=== PATIENT | male | born 1955 | race Hispanic/Latino ===

== ENCOUNTER 2022-12-29 13:39 | Inpatient (IN) | payer OTHER ==
[2022-12-29] VITALS (28 sets, daily range): BP systolic 82–161; BP diastolic 42–115
[~2022-12-29] VITALS: Ht 152.4 cm; Wt 69.4 kg
[2022-12-29] MEDS ORDERED: HEPARIN 5,000 UNIT VIAL ONE (13:42)
[2022-12-29] MEDS ORDERED: TICAGRELOR 90 MG TABLET ONE (13:42)
[2022-12-29 13:56] LABS: BASOPHILS % (AUTO) 0.3 % (0.0-5.0); EOSINOPHILS % (AUTO) 1.6 % (0.0-8.0); HEMATOCRIT 46.1 % (42-54); LYMPHOCYTES % (AUTO) 16.8 % (21.0-51.0); MEAN CORPUSCULAR HEMOGLOBIN 27.4 pg (27.0-33.0); MEAN CORPUSCULAR HGB CONC 32.5 g/dL (32.0-36.0); MEAN CORPUSCULAR VOLUME 84.3 fL (79-99); MONOCYTES % (AUTO) 5.3 % (3.0-13.0); NEUTROPHILS % (AUTO) 75.7 % (40.0-77.0); PLATELET COUNT (AUTO) 214 K/uL (130-400); RED BLOOD CELL COUNT(AUTO) 5.47 MIL/uL (4.50-6.20); RED CELL DISTRIBUTION WIDTH 11.9 % (11.0-15.5); WHITE BLOOD COUNT (AUTO) 9.5 K/uL (4.8-10.8)
[2022-12-29] MEDS: HEPARIN 5,000 UNIT VIAL IV STA ×2 (13:56→14:06)
[2022-12-29] MEDS: TICAGRELOR 90 MG TABLET PO SCH ×3 (13:56→16:40)
[2022-12-29] MEDS ORDERED: FUROSEMIDE 20MG VIAL ONE (14:05)
[2022-12-29 14:09] LABS: ALBUMIN 3.6 g/dL (3.5-5.0); CREATININE 1.3 mg/dL (0.5-1.5); MAGNESIUM 1.9 mg/dL (1.80-2.40); POTASSIUM 4.3 mmol/L (3.5-5.1); TOTAL PROTEIN, SERUM 7.5 g/dL (6.0-8.3)
[2022-12-29 14:22] LABS: B-TYPE NATRIURETIC PEPTIDE 252 pg/mL (0-100)
[2022-12-29] MEDS ORDERED: LIDOCAINE HCL 400MG/20ML VIAL ONE (14:25)
[2022-12-29] MEDS ORDERED: MIDAZOLAM HCL 1 MG/ML 2ML VIAL ONE (14:25)
[2022-12-29] MEDS ORDERED: FENTANYL CITRATE PF 50 MCG/1 ML 2ML VIAL ONE (14:25)
[2022-12-29 14:26] LABS: INR 0.98 (0.85-1.15); PROTHROMBIN TIME 10.7 SEC (9.6-11.6)
[2022-12-29] MEDS ORDERED: HEPARIN 10,000 UNIT/10ML (1,000 UNIT/ML) VIAL ONE (14:27)
[2022-12-29] MEDS ORDERED: IOHEXOL 350 MG/ML 100ML INFUS..BTL IV ONE (14:27)
[2022-12-29] MEDS ORDERED: MORPHINE 4 MG SYG ONE (14:27)
[2022-12-29] MEDS ORDERED: PROPOFOL 1000 MG/100 ML 100 ML IV ONE ×2 (14:29→19:37)
[2022-12-29] MEDS ORDERED: NITROGLYCERIN 50MG VIAL ONE (14:43)
[2022-12-29] MEDS ORDERED: SUCCINYLCHOLINE CHLORIDE 20 MG/ML 10 ML VIAL IVP ONE (14:59)
[2022-12-29] MEDS ORDERED: ETOMIDATE 20MG VIAL IVP ONE (14:59)
[2022-12-29 15:05] LABS: ABG BASE EXCESS -7.8 mmol/L (-2.0-3.0); ABG HCO3 18.5 mmol/L (21.0-28.0); ABG OXYGEN SATURATION 99.7 % (95.0-99.0); ABG PCO2 40 mmHg (35-48)
[2022-12-29] MEDS ORDERED: SODIUM BICARB 50MEQ 50ML VIAL 50 ML ONE (15:07)
[2022-12-29] MEDS ORDERED: DOBUTAMINE 250MG/D5 250ML 250 ML IV ONE (15:09)
[2022-12-29] MEDS ORDERED: HEPARIN 25,000 UNITS/250ML D5W 250 ML IV ONE (15:24)
[2022-12-29 16:51] LABS: ABG BASE EXCESS -1.6 mmol/L (-2.0-3.0); ABG HCO3 22.4 mmol/L (21.0-28.0); ABG OXYGEN SATURATION 99.7 % (95.0-99.0); ABG PCO2 36 mmHg (35-48)
[2022-12-29] MEDS: BUMETANIDE 2.5MG/10ML VIAL 40 ML IV SCH (16:58)
[2022-12-29] MEDS ORDERED: INSULIN HUMULIN R 100 UNIT/ML 3ML SQ STA ×2 (18:20→18:30)
[2022-12-29] MEDS ORDERED: GLUCAGON 1MG KIT 1 MG ML IM PRN (18:30)
[2022-12-29] MEDS ORDERED: DEXTROSE 50%-WATER 50 ML DISP.SYRIN IV PRN (18:30)
[2022-12-29] MEDS ORDERED: DiphenhydrAMINE HCL 50 MG/ML VIAL IV PRN (19:00)
[2022-12-29] MEDS ORDERED: MORPHINE 2 MG SYG IVP PRN (19:00)
[2022-12-29] MEDS ORDERED: ONDANSETRON 4MG INJ IVP PRN (19:00)
[2022-12-29] MEDS ORDERED: HYDRALAZINE 20MG/ML VIAL IV PRN (19:00)
[2022-12-29] MEDS ORDERED: DOPAMINE HCL 400 MG/D5%-WATER 250 ML IV ONE (19:39)
[2022-12-29] MEDS: PROPOFOL 1000 MG/100 ML IV PRN (19:59)
[2022-12-29] MEDS: DOPAMINE HCL 400 MG/D5%-WATER 250 ML IV PRN (20:00)
[2022-12-29] MEDS: INSULIN HUMULIN R 100 UNIT/ML 3ML SQ SCH ×2 (20:10→23:51)
[2022-12-29] MEDS: PANTOPRAZOLE 40 MG TAB DR PO SCH (20:35)
[2022-12-29] MEDS ORDERED: INSULIN HUMULIN R 100 UNIT/ML 3ML SQ SCH (21:00)
[2022-12-29 21:40] LABS: CREATININE 1.3 mg/dL (0.5-1.5); MAGNESIUM 2.2 mg/dL (1.80-2.40); POTASSIUM 3.5 mmol/L (3.5-5.1)
[2022-12-29] MEDS: POTASSIUM CHLORIDE 10MEQ/100ML 100 ML IV PRN (21:59)
[2022-12-30] VITALS (114 sets, daily range): BP systolic 75–156; BP diastolic 32–108
[2022-12-30] MEDS: PROPOFOL 1000 MG/100 ML IV PRN ×2 (01:31→06:23)
[2022-12-30 03:07] LABS: MEAN CORPUSCULAR HEMOGLOBIN 26.9 pg (27.0-33.0); MEAN CORPUSCULAR HGB CONC 32.6 g/dL (32.0-36.0); MEAN CORPUSCULAR VOLUME 82.6 fL (79-99); RED BLOOD CELL COUNT(AUTO) 5.69 MIL/uL (4.50-6.20); WHITE BLOOD COUNT (AUTO) 14.4 K/uL (4.8-10.8)
[2022-12-30 03:25] LABS: HEMOGLOBIN A1C 8.5 % (4.0-6.0)
[2022-12-30 03:27] LABS: CREATININE 1.4 mg/dL (0.5-1.5); MAGNESIUM 1.7 mg/dL (1.80-2.40); PHOSPHORUS 3.8 mg/dL (2.5-4.9); POTASSIUM 3.3 mmol/L (3.5-5.1); THYROID STIMULATING HORMONE 1.75 uIU/mL (0.36-3.74)
[2022-12-30] MEDS: POTASSIUM CHLORIDE 10MEQ/100ML 100 ML IV PRN ×4 (03:42→14:02)
[2022-12-30] MEDS: MAGNESIUM 2GM PREMIX 50ML 50 ML IV PRN ×2 (03:42→22:30)
[2022-12-30] MEDS: INSULIN HUMULIN R 100 UNIT/ML 3ML SQ SCH ×4 (05:40→23:56)
[2022-12-30] MEDS: BUMETANIDE 2.5MG/10ML VIAL 40 ML IV SCH (06:24)
[2022-12-30] MEDS ORDERED: FENTANYL 2500MCG+NS 250ML IV.SOLN IV SCH (07:30)
[2022-12-30] MEDS ORDERED: MIDAZOLAM HCL 50 MG in 0.9%NACL 50ML 50 ML IV SCH (07:30)
[2022-12-30] MEDS: TICAGRELOR 90 MG TABLET PO SCH (07:45)
[2022-12-30] MEDS ORDERED: FENTANYL 1000MCG+NS 100ML 100 ML IV SCH (08:00)
[2022-12-30] MEDS ORDERED: MIDAZOLAM 50MG-0.9% NS 50ML 50 ML IV SCH (08:00)
[2022-12-30] MEDS: ATORVASTATIN 40 MG TABLET PO SCH (09:04)
[2022-12-30] MEDS: ASPIRIN 81MG CHEW TAB PO SCH (09:04)
[2022-12-30] MEDS: PANTOPRAZOLE 40 MG TAB DR PO SCH ×2 (09:05→20:25)
[2022-12-30 09:06] LABS: MAGNESIUM 2.3 mg/dL (1.80-2.40); POTASSIUM 3.2 mmol/L (3.5-5.1)
[2022-12-30 09:09] LABS: PROTHROMBIN TIME 10.9 SEC (9.6-11.6)
[2022-12-30 09:10] LABS: PARTIAL THROMBOPLASTIN TIME 69.2 SEC (26.3-35.5)
[2022-12-30] MEDS: POTASSIUM CHLORIDE 10% ELIXIR 20 MEQ/15 ML UDCUP PO PRN ×2 (10:40→10:55)
[2022-12-30] MEDS: HEPARIN 25,000 UNITS/250ML D5W 250 ML IV SCH (10:47)
[2022-12-30] MEDS: DOPAMINE HCL 400 MG/D5%-WATER 250 ML IV PRN (10:48)
[2022-12-30] MEDS ORDERED: ACETAMINOPHEN 650 MG SUPPOSITORY RC ONE (12:12)
[2022-12-30] MEDS ORDERED: ACETAMINOPHEN 325 MG TAB ONE (12:17)
[2022-12-30] MEDS ORDERED: ACETAMINOPHEN 650 MG/20.3 ML UDCUP PEG ONE (12:30)
[2022-12-30] MEDS ORDERED: ACETAMINOPHEN 325 MG SUPPOSITORY RC PRN (12:30)
[2022-12-30] MEDS ORDERED: ACETAMINOPHEN 650 MG SUPPOSITORY RC PRN ×2 (12:30→13:00)
[2022-12-30] MEDS: ACETAMINOPHEN 325 MG TAB PO PRN ×2 (13:11→20:51)
[2022-12-30] MEDS ORDERED: NOREPINEPHRINE 8MG/NS 250ML PREMIX IV SCH (14:30)
[2022-12-30] MEDS ORDERED: NOREPINEPHRINE 16MG/NS 250ML PREMIX IV SCH (14:30)
[2022-12-30] MEDS ORDERED: NOREPINEPHRIN 8MG/250ML NS PMX 250 ML IV SCH (15:00)
[2022-12-30] MEDS ORDERED: BUMETANIDE 2.5MG/10ML VIAL 40 ML IV SCH (17:00)
[2022-12-30] MEDS ORDERED: HYDROMORPHONE 0.5 MG SYG (0.5MG/0.5ML) ONE (17:58)
[2022-12-30] MEDS ORDERED: DIGOXIN 250 MCG/ML 2ML AMP ONE (17:59)
[2022-12-30] MEDS ORDERED: DIGOXIN 250 MCG/ML 2ML AMP IV ONE (18:00)
[2022-12-30] MEDS: DEXMEDETOMIDINE 400MCG/NS100ML IV SCH ×2 (18:12→22:30)
[2022-12-30 18:19] LABS: HEMATOCRIT 44.3 % (42-54); MEAN CORPUSCULAR HEMOGLOBIN 27.2 pg (27.0-33.0); MEAN CORPUSCULAR HGB CONC 32.7 g/dL (32.0-36.0); RED BLOOD CELL COUNT(AUTO) 5.34 MIL/uL (4.50-6.20); RED CELL DISTRIBUTION WIDTH 12.1 % (11.0-15.5); WHITE BLOOD COUNT (AUTO) 17.4 K/uL (4.8-10.8)
[2022-12-30 18:22] LABS: ABG HCO3 24.7 mmol/L (21.0-28.0); ABG OXYGEN SATURATION 98.9 % (95.0-99.0); ABG PCO2 30 mmHg (35-48)
[2022-12-30 18:26] LABS: CREATININE 1.8 mg/dL (0.5-1.5); POTASSIUM 4.8 mmol/L (3.5-5.1)
[2022-12-30] MEDS ORDERED: INSULIN HUMULIN R 100 UNIT/ML 3ML SQ SCH (18:30)
[2022-12-30] MEDS ORDERED: NACL IV ONE ×2 (19:00)
[2022-12-30] MEDS ORDERED: PHENYLEPHRINE HCL 100 MG in 0.9% NACL 250ML 240 ML IV PRN (21:30)
[2022-12-30 22:12] LABS: CREATININE 1.8 mg/dL (0.5-1.5); MAGNESIUM 1.8 mg/dL (1.80-2.40); POTASSIUM 3.7 mmol/L (3.5-5.1)
[2022-12-30] MEDS: POTASSIUM CHLORIDE 20MEQ/100ML 100 ML IV PRN (22:30)
[2022-12-31] VITALS (98 sets, daily range): BP systolic 80–162; BP diastolic 34–78
[2022-12-31] MEDS: DEXMEDETOMIDINE 400MCG/NS100ML IV SCH ×4 (03:03→23:57)
[2022-12-31 04:49] LABS: HEMATOCRIT 39.3 % (42-54); MEAN CORPUSCULAR HEMOGLOBIN 27.3 pg (27.0-33.0); MEAN CORPUSCULAR HGB CONC 32.3 g/dL (32.0-36.0); MEAN CORPUSCULAR VOLUME 84.3 fL (79-99); RED BLOOD CELL COUNT(AUTO) 4.66 MIL/uL (4.50-6.20)
[2022-12-31 05:04] LABS: CREATININE 1.9 mg/dL (0.5-1.5); MAGNESIUM 2.4 mg/dL (1.80-2.40); PHOSPHORUS 4.7 mg/dL (2.5-4.9); POTASSIUM 4.7 mmol/L (3.5-5.1)
[2022-12-31] MEDS: INSULIN HUMULIN R 100 UNIT/ML 3ML SQ SCH ×4 (05:56→23:56)
[2022-12-31] MEDS: BUMETANIDE 1MG/4ML VIAL IVP SCH ×2 (06:16→18:25)
[2022-12-31] MEDS ORDERED: BUMETANIDE 1MG/4ML VIAL IM SCH (07:00)
[2022-12-31] MEDS: PANTOPRAZOLE 40 MG TAB DR PO SCH ×2 (09:00→19:55)
[2022-12-31] MEDS: ASPIRIN 81MG CHEW TAB PO SCH (09:12)
[2022-12-31] MEDS: FAMOTIDINE 20MG TAB PO SCH (09:12)
[2022-12-31] MEDS: ATORVASTATIN 40 MG TABLET PO SCH (09:12)
[2022-12-31] MEDS: HEPARIN 25,000 UNITS/250ML D5W 250 ML IV SCH (14:24)
[2022-12-31 17:15] LABS: CREATININE 1.6 mg/dL (0.5-1.5); INR 1.01 (0.85-1.15); MAGNESIUM 2.3 mg/dL (1.80-2.40); POTASSIUM 3.7 mmol/L (3.5-5.1)
[2022-12-31 17:16] LABS: PARTIAL THROMBOPLASTIN TIME 35.1 SEC (26.3-35.5)
[2022-12-31] MEDS ORDERED: CEFAZOLIN SODIUM 1 GM VIAL IVPB SCH (20:00)
[2022-12-31] MEDS: DOPAMINE HCL 400 MG/D5%-WATER 250 ML IV PRN (22:58)
[2022-12-31 23:45] LABS: INR 1.02 (0.85-1.15); PROTHROMBIN TIME 11.1 SEC (9.6-11.6)
[2023-01-01] VITALS (81 sets, daily range): BP systolic 0–161; BP diastolic 0–86
[2023-01-01 00:03] LABS: PARTIAL THROMBOPLASTIN TIME 89.1 SEC (26.3-35.5)
[2023-01-01 04:55] LABS: HEMATOCRIT 39.6 % (42-54); MEAN CORPUSCULAR HEMOGLOBIN 27.1 pg (27.0-33.0); MEAN CORPUSCULAR HGB CONC 31.3 g/dL (32.0-36.0); MEAN CORPUSCULAR VOLUME 86.5 fL (79-99); RED BLOOD CELL COUNT(AUTO) 4.58 MIL/uL (4.50-6.20); RED CELL DISTRIBUTION WIDTH 12.1 % (11.0-15.5); WHITE BLOOD COUNT (AUTO) 16.1 K/uL (4.8-10.8)
[2023-01-01 05:05] LABS: CREATININE 1.7 mg/dL (0.5-1.5); POTASSIUM 3.3 mmol/L (3.5-5.1)
[2023-01-01 05:06] LABS: PROTHROMBIN TIME 10.9 SEC (9.6-11.6)
[2023-01-01 05:07] LABS: PARTIAL THROMBOPLASTIN TIME 69.9 SEC (26.3-35.5)
[2023-01-01] MEDS: INSULIN HUMULIN R 100 UNIT/ML 3ML SQ SCH ×2 (05:15→11:29)
[2023-01-01 05:17] LABS: ALBUMIN 2.5 g/dL (3.5-5.0); MAGNESIUM 2.1 mg/dL (1.80-2.40); TOTAL PROTEIN, SERUM 6.9 g/dL (6.0-8.3)
[2023-01-01] MEDS: POTASSIUM CHLORIDE 20MEQ/100ML 100 ML IV PRN ×2 (05:20→21:57)
[2023-01-01] MEDS ORDERED: NOREPINEPHRINE BITARTRATE 8 MG in DEXTROSE 5%-WATER 250 ML IV PRN (08:00)
[2023-01-01] MEDS ORDERED: EPINEPHRINE PF 1MG (1:1,000) 10 MG in 0.9% NACL 250ML 240 ML IV PRN ×2 (08:00→17:30)
[2023-01-01] MEDS ORDERED: AMINOCAPROIC ACID 5,000MG VIAL 15,000 MG in 0.9% NACL 500ML IV.SOLN 420 ML IV PRN (08:00)
[2023-01-01] MEDS: PANTOPRAZOLE 40 MG TAB DR PO SCH (08:04)
[2023-01-01] MEDS: ASPIRIN 81MG CHEW TAB PO SCH (08:04)
[2023-01-01] MEDS ORDERED: CEFAZOLIN SODIUM 1 GM VIAL ONE ×2 (08:04→17:36)
[2023-01-01] MEDS: ATORVASTATIN 40 MG TABLET PO SCH (08:04)
[2023-01-01] MEDS: FAMOTIDINE 20MG TAB PO SCH (08:04)
[2023-01-01] MEDS ORDERED: PAPAVERINE HCL 30 MG/ML 2ML VIAL ONE (08:05)
[2023-01-01] MEDS ORDERED: NOREPINEPHRINE BITARTRATE IV PRN (08:30)
[2023-01-01] MEDS ORDERED: NACL 0.9% IV PRN (08:30)
[2023-01-01] MEDS: DEXMEDETOMIDINE 400MCG/NS100ML IV SCH (09:20)
[2023-01-01 11:21] LABS: CREATININE 1.5 mg/dL (0.5-1.5); POTASSIUM 3.9 mmol/L (3.5-5.1)
[2023-01-01 12:08] LABS: INR 0.96 (0.85-1.15); PROTHROMBIN TIME 10.5 SEC (9.6-11.6)
[2023-01-01 12:10] LABS: PARTIAL THROMBOPLASTIN TIME 32.7 SEC (26.3-35.5)
[2023-01-01] MEDS ORDERED: HEPARIN 10,000 UNIT/10ML (1,000 UNIT/ML) VIAL ONE (17:12)
[2023-01-01] MEDS ORDERED: EPINEPHRINE PF 1MG (1:1,000) 1 MG/ML AMP ONE (17:12)
[2023-01-01] MEDS ORDERED: PROPOFOL 10 MG/ML 20ML VIAL IV ONE (17:12)
[2023-01-01] MEDS ORDERED: ETOMIDATE 20MG VIAL ONE (17:12)
[2023-01-01] MEDS ORDERED: ESMOLOL HCL 10 MG/ML 10 ML VIAL ONE (17:12)
[2023-01-01] MEDS ORDERED: LIDOCAINE PF 100MG/5ML (2%) SYRINGE 5ML ONE (17:12)
[2023-01-01] MEDS ORDERED: AMINOCAPROIC ACID 5,000MG VIAL ONE (17:12)
[2023-01-01] MEDS ORDERED: ROCURONIUM 10MG/1ML SYR 10 MG/ML ML ONE (17:12)
[2023-01-01] MEDS ORDERED: FENTANYL CITRATE PF 50 MCG/1 ML 20ML VIAL IJ ONE (17:12)
[2023-01-01] MEDS ORDERED: NOREPINEPHRINE BITARTRATE 1 MG/1 ML ML IV ONE (17:12)
[2023-01-01] MEDS ORDERED: MORPHINE 4 MG SYG IV PRN (17:30)
[2023-01-01] MEDS ORDERED: NOREPINEPHRIN 4MG/NS 250ML 250 ML IV PRN (17:30)
[2023-01-01] MEDS ORDERED: 0.9%NACL 1000ML 1,000 ML IV SCH (17:30)
[2023-01-01] MEDS ORDERED: DEXTROSE 50%-WATER 50 ML DISP.SYRIN IV PRN (17:30)
[2023-01-01] MEDS ORDERED: PROPOFOL 1000 MG/100 ML 100 ML IV PRN (17:30)
[2023-01-01] MEDS ORDERED: ACETAMINOPHEN 650 MG SUPPOSITORY RC PRN (17:30)
[2023-01-01] MEDS ORDERED: SODIUM BICARB 50MEQ 50ML VIAL IV PRN (17:30)
[2023-01-01] MEDS ORDERED: 0.9%NACL 10ML VIAL IVP PRN (17:30)
[2023-01-01] MEDS ORDERED: GLUCAGON 1MG KIT 1 MG ML IM PRN (17:30)
[2023-01-01] MEDS ORDERED: CEFAZOLIN SODIUM 2 GM VIAL IVPB ONE ×2 (17:30)
[2023-01-01] MEDS ORDERED: POTASSIUM PHOS 15 mMOL+NS250ML 250 ML IV PRN (17:30)
[2023-01-01] MEDS ORDERED: INSULIN REGULAR, HUMAN 3ML 100 UNIT in 0.9%NACL 100ML 99 ML IV SCH ×2 (17:30)
[2023-01-01] MEDS ORDERED: MORPHINE 2 MG SYG IV PRN (17:30)
[2023-01-01] MEDS ORDERED: AMINOCAPROIC ACID 5,000MG VIAL 15,000 MG in 0.9% NACL 250ML 250 ML IV SCH (17:30)
[2023-01-01] MEDS ORDERED: ALBUMIN (HUMAN) 5% 250 ML IV PRN (17:30)
[2023-01-01] MEDS ORDERED: 0.9% NACL 500ML IV.SOLN 500 ML IV SCH (17:30)
[2023-01-01] MEDS ORDERED: NITROGLYCERIN 50MG/D5W 250ML 250 BOT IV SCH (17:30)
[2023-01-01] MEDS ORDERED: VASOPRESSIN 20 UNITS/ML 1ML VIAL ONE (17:42)
[2023-01-01] MEDS ORDERED: PAPAVERINE HCL 30 MG/ML 2ML VIAL IRRIG ONE ×2 (17:46)
[2023-01-01] MEDS ORDERED: CEFAZOLIN SODIUM 2 GM VIAL IVPB SCH (18:00)
[2023-01-01] MEDS ORDERED: SODIUM BICARB 8.4% 50ML SYRINGE ONE (18:03)
[2023-01-01] MEDS ORDERED: PROTAMINE SULFATE 10 MG/ML 5 ML VIAL ONE (19:30)
[2023-01-01 19:50] LABS: ABG BASE EXCESS -5.6 mmol/L (-2.0-3.0); ABG HCO3 18.9 mmol/L (21.0-28.0); ABG OXYGEN SATURATION 99.1 % (95.0-99.0); ABG PCO2 33 mmHg (35-48)
[2023-01-01] MEDS ORDERED: FENTANYL CITRATE PF 50 MCG/1 ML 5ML AMP IV ONE ×2 (19:55)
[2023-01-01] MEDS ORDERED: ASPIRIN 81MG CHEW TAB NG ONE (20:00)
[2023-01-01] MEDS ORDERED: SODIUM BICARB 50MEQ 50ML VIAL 50 ML ONE (20:03)
[2023-01-01 20:38] LABS: ABG BASE EXCESS 0.1 mmol/L (-2.0-3.0); ABG HCO3 24.9 mmol/L (21.0-28.0); ABG OXYGEN SATURATION 97.4 % (95.0-99.0); ABG PCO2 41 mmHg (35-48)
[2023-01-01 20:55] LABS: HEMATOCRIT 26.5 % (42-54); MEAN CORPUSCULAR HEMOGLOBIN 27.7 pg (27.0-33.0); MEAN CORPUSCULAR HGB CONC 31.3 g/dL (32.0-36.0); MEAN CORPUSCULAR VOLUME 88.3 fL (79-99); RED CELL DISTRIBUTION WIDTH 12.2 % (11.0-15.5); WHITE BLOOD COUNT (AUTO) 22.9 K/uL (4.8-10.8)
[2023-01-01 21:04] LABS: INR 1.15 (0.85-1.15); PROTHROMBIN TIME 12.4 SEC (9.6-11.6)
[2023-01-01 21:06] LABS: PARTIAL THROMBOPLASTIN TIME 27.6 SEC (26.3-35.5)
[2023-01-01 21:10] LABS: CREATININE 1.5 mg/dL (0.5-1.5); MAGNESIUM 1.6 mg/dL (1.80-2.40); PHOSPHORUS 5.8 mg/dL (2.5-4.9); POTASSIUM 3.3 mmol/L (3.5-5.1)
[2023-01-01 21:43] LABS: ABG BASE EXCESS -1.1 mmol/L (-2.0-3.0); ABG HCO3 23.7 mmol/L (21.0-28.0); ABG OXYGEN SATURATION 96.3 % (95.0-99.0); ABG PCO2 40 mmHg (35-48)
[2023-01-01] MEDS: CEFAZOLIN SODIUM 2 GM VIAL IVPB SCH (21:56)
[2023-01-01] MEDS: MAGNESIUM 2GM PREMIX 50ML 50 ML IV PRN (21:58)
[2023-01-01] MEDS: FAMOTIDINE 20MG VIAL IV SCH (22:19)
[2023-01-01] MEDS: ONDANSETRON 4MG INJ IV PRN (22:19)
[2023-01-01 22:52] LABS: ABG BASE EXCESS 1.4 mmol/L (-2.0-3.0); ABG HCO3 25.5 mmol/L (21.0-28.0); ABG OXYGEN SATURATION 97.4 % (95.0-99.0); ABG PCO2 38 mmHg (35-48)
[2023-01-01] MEDS: ACETAMINOPHEN 325 MG TAB PO PRN (23:44)
[2023-01-02] VITALS (96 sets, daily range): BP systolic 7–248; BP diastolic 2–101
[2023-01-02 00:08] LABS: ABG BASE EXCESS -0.1 mmol/L (-2.0-3.0); ABG HCO3 23.5 mmol/L (21.0-28.0); ABG OXYGEN SATURATION 98.1 % (95.0-99.0); ABG PCO2 34 mmHg (35-48)
[2023-01-02 01:30] LABS: ABG BASE EXCESS 2.1 mmol/L (-2.0-3.0); ABG HCO3 25.5 mmol/L (21.0-28.0); ABG OXYGEN SATURATION 98.1 % (95.0-99.0); ABG PCO2 35 mmHg (35-48)
[2023-01-02] MEDS ORDERED: CALCIUM GLUC 1GM/10ML VIAL ONE ×5 (01:33→17:05)
[2023-01-02] MEDS: POTASSIUM CHLORIDE 20MEQ/100ML 100 ML IV PRN ×2 (01:37→03:27)
[2023-01-02] MEDS: CALCIUM GLUC 1GM 1 GM in 0.9%NACL 50ML 50 ML IV PRN ×2 (01:38→05:26)
[2023-01-02] MEDS: CEFAZOLIN SODIUM 2 GM VIAL IVPB SCH ×2 (02:55→10:20)
[2023-01-02 03:19] LABS: ABG BASE EXCESS 2.4 mmol/L (-2.0-3.0); ABG HCO3 25.9 mmol/L (21.0-28.0); ABG OXYGEN SATURATION 96.5 % (95.0-99.0); ABG PCO2 35 mmHg (35-48)
[2023-01-02] MEDS: DEXMEDETOMIDINE 400MCG/NS100ML IV SCH (04:17)
[2023-01-02 05:10] LABS: ABG BASE EXCESS 5.6 mmol/L (-2.0-3.0); ABG HCO3 28.7 mmol/L (21.0-28.0); ABG OXYGEN SATURATION 98.2 % (95.0-99.0); ABG PCO2 36 mmHg (35-48)
[2023-01-02 05:31] LABS: BASOPHILS % (AUTO) 0.2 % (0.0-5.0); HEMATOCRIT 23.3 % (42-54); LYMPHOCYTES % (AUTO) 9.1 % (21.0-51.0); MEAN CORPUSCULAR HEMOGLOBIN 27.7 pg (27.0-33.0); MEAN CORPUSCULAR HGB CONC 31.3 g/dL (32.0-36.0); MEAN CORPUSCULAR VOLUME 88.3 fL (79-99); MONOCYTES % (AUTO) 10.5 % (3.0-13.0); NEUTROPHILS % (AUTO) 79.6 % (40.0-77.0); PLATELET COUNT (AUTO) 128 K/uL (130-400); RED BLOOD CELL COUNT(AUTO) 2.64 MIL/uL (4.50-6.20); RED CELL DISTRIBUTION WIDTH 12.2 % (11.0-15.5); WHITE BLOOD COUNT (AUTO) 15.6 K/uL (4.8-10.8)
[2023-01-02 05:47] LABS: INR 1.06 (0.85-1.15); PROTHROMBIN TIME 11.5 SEC (9.6-11.6)
[2023-01-02 05:48] LABS: PARTIAL THROMBOPLASTIN TIME 31.2 SEC (26.3-35.5)
[2023-01-02 05:58] LABS: ALBUMIN 1.8 g/dL (3.5-5.0); CREATININE 1.7 mg/dL (0.5-1.5); PHOSPHORUS 2.3 mg/dL (2.5-4.9); POTASSIUM 4.2 mmol/L (3.5-5.1); TOTAL PROTEIN, SERUM 4.6 g/dL (6.0-8.3)
[2023-01-02 06:56] LABS: ABG BASE EXCESS 4.4 mmol/L (-2.0-3.0); ABG HCO3 28.3 mmol/L (21.0-28.0); ABG OXYGEN SATURATION 98.3 % (95.0-99.0); ABG PCO2 39 mmHg (35-48)
[2023-01-02] MEDS: TRAMADOL HCL 50 MG TABLET PO PRN ×4 (07:18→21:43)
[2023-01-02] MEDS: MAGNESIUM 2GM PREMIX 50ML 50 ML IV PRN (07:18)
[2023-01-02] MEDS ORDERED: IPRATROPIUM 0.5 MG/2.5 ML INH IH PRN (08:00)
[2023-01-02 08:28] LABS: ABG BASE EXCESS 5.8 mmol/L (-2.0-3.0); ABG HCO3 29.7 mmol/L (21.0-28.0); ABG PCO2 40 mmHg (35-48)
[2023-01-02] MEDS: ACETAMINOPHEN 325 MG TAB PO PRN (08:28)
[2023-01-02] MEDS: FAMOTIDINE 20MG TAB PO SCH (08:28)
[2023-01-02] MEDS: ATORVASTATIN 40 MG TABLET PO SCH (08:28)
[2023-01-02] MEDS: ASPIRIN 81MG CHEW TAB PO SCH (08:28)
[2023-01-02 09:45] LABS: ABG HCO3 29.5 mmol/L (21.0-28.0); ABG OXYGEN SATURATION 97.1 % (95.0-99.0); ABG PCO2 43 mmHg (35-48)
[2023-01-02] MEDS ORDERED: IPRATROPIUM 0.5 MG/2.5 ML INH IH ONE (10:31)
[2023-01-02 11:15] LABS: ABG HCO3 25.3 mmol/L (21.0-28.0); ABG OXYGEN SATURATION 96.5 % (95.0-99.0); ABG PCO2 39 mmHg (35-48)
[2023-01-02] MEDS: IPRATROPIUM 0.5 MG/2.5 ML INH IH SCH ×3 (11:57→23:45)
[2023-01-02] MEDS ORDERED: ACETYLCYSTEINE 10% 100MG/ML 4ML VIAL PO SCH (12:00)
[2023-01-02 12:52] LABS: ABG BASE EXCESS 0.1 mmol/L (-2.0-3.0); ABG HCO3 24.8 mmol/L (21.0-28.0); ABG OXYGEN SATURATION 99.5 % (95.0-99.0); ABG PCO2 41 mmHg (35-48)
[2023-01-02 12:52] LABS: ABG BASE EXCESS -3.7 mmol/L (-2.0-3.0); ABG HCO3 20.5 mmol/L (21.0-28.0); ABG OXYGEN SATURATION 99.7 % (95.0-99.0); ABG PCO2 34 mmHg (35-48)
[2023-01-02 12:53] LABS: ABG BASE EXCESS -2.1 mmol/L (-2.0-3.0); ABG OXYGEN SATURATION 99.5 % (95.0-99.0); ABG PCO2 35 mmHg (35-48)
[2023-01-02] MEDS ORDERED: ACETAMINOPHEN 1,000 MG/100 ML VIAL IV SCH (14:00)
[2023-01-02 16:29] LABS: MEAN CORPUSCULAR HEMOGLOBIN 27.9 pg (27.0-33.0); MEAN CORPUSCULAR HGB CONC 32.5 g/dL (32.0-36.0); MEAN CORPUSCULAR VOLUME 85.7 fL (79-99); RED BLOOD CELL COUNT(AUTO) 2.8 MIL/uL (4.50-6.20); RED CELL DISTRIBUTION WIDTH 13.8 % (11.0-15.5); WHITE BLOOD COUNT (AUTO) 14.3 K/uL (4.8-10.8)
[2023-01-02] MEDS: ZOSYN 3.375GM +NS 50ML IVPB SCH (16:37)
[2023-01-02 16:49] LABS: MAGNESIUM 2.2 mg/dL (1.80-2.40); PHOSPHORUS 5.1 mg/dL (2.5-4.9); POTASSIUM 4.1 mmol/L (3.5-5.1)
[2023-01-02 17:46] LABS: HEMATOCRIT 25.9 % (42-54)
[2023-01-02] MEDS: ACETYLCYSTEINE 10% 100MG/ML 4ML VIAL IH SCH (19:36)
[2023-01-02] MEDS: FAMOTIDINE 20MG VIAL IV SCH (21:19)
[2023-01-03] VITALS (77 sets, daily range): BP systolic 99–193; BP diastolic 45–86
[2023-01-03] MEDS: ZOSYN 3.375GM +NS 50ML IVPB SCH ×4 (00:51→23:33)
[2023-01-03] MEDS: TRAMADOL HCL 50 MG TABLET PO PRN ×2 (04:08→16:41)
[2023-01-03 06:14] LABS: BASOPHILS % (AUTO) 0.2 % (0.0-5.0); EOSINOPHILS % (AUTO) 1.7 % (0.0-8.0); HEMATOCRIT 23.2 % (42-54); LYMPHOCYTES % (AUTO) 12.5 % (21.0-51.0); MEAN CORPUSCULAR HEMOGLOBIN 28.2 pg (27.0-33.0); MEAN CORPUSCULAR HGB CONC 31.9 g/dL (32.0-36.0); MEAN CORPUSCULAR VOLUME 88.5 fL (79-99); MONOCYTES % (AUTO) 10.5 % (3.0-13.0); NEUTROPHILS % (AUTO) 74.4 % (40.0-77.0); PLATELET COUNT (AUTO) 85 K/uL (130-400); RED BLOOD CELL COUNT(AUTO) 2.62 MIL/uL (4.50-6.20); WHITE BLOOD COUNT (AUTO) 13.2 K/uL (4.8-10.8)
[2023-01-03 06:33] LABS: ALBUMIN 1.9 g/dL (3.5-5.0); CREATININE 1.4 mg/dL (0.5-1.5); POTASSIUM 3.9 mmol/L (3.5-5.1); TOTAL PROTEIN, SERUM 5.1 g/dL (6.0-8.3)
[2023-01-03 06:37] LABS: INR 0.99 (0.85-1.15); PROTHROMBIN TIME 10.8 SEC (9.6-11.6)
[2023-01-03 06:38] LABS: PARTIAL THROMBOPLASTIN TIME 32.5 SEC (26.3-35.5)
[2023-01-03] MEDS: POTASSIUM CHLORIDE 20MEQ/100ML 100 ML IV PRN ×3 (06:41→21:32)
[2023-01-03] MEDS: ACETYLCYSTEINE 10% 100MG/ML 4ML VIAL IH SCH ×2 (06:57→19:42)
[2023-01-03] MEDS: IPRATROPIUM 0.5 MG/2.5 ML INH IH SCH ×4 (06:59→23:36)
[2023-01-03] MEDS: ASPIRIN 81MG CHEW TAB PO SCH (07:51)
[2023-01-03] MEDS: ATORVASTATIN 40 MG TABLET PO SCH (07:51)
[2023-01-03] MEDS: CARVEDILOL 6.25 MG TABLET PO SCH ×2 (07:51→20:05)
[2023-01-03] MEDS: FUROSEMIDE 20MG VIAL IV SCH ×3 (07:52→23:24)
[2023-01-03] MEDS: SACUBITRIL/VALSARTAN 1 EACH TABLET PO SCH ×2 (11:04→19:56)
[2023-01-03] MEDS: INSULIN HUMULIN R 100 UNIT/ML 3ML SQ SCH ×3 (11:30→20:05)
[2023-01-03 13:08] LABS: MAGNESIUM 1.7 mg/dL (1.80-2.40)
[2023-01-03] MEDS: MAGNESIUM 2GM PREMIX 50ML 50 ML IV PRN (13:21)
[2023-01-03] MEDS ORDERED: SODIUM CHLORIDE 3% FOR INHALATION 4 ML/AMP VIAL.NEB IH ONE ×2 (19:49→23:13)
[2023-01-03] MEDS: FAMOTIDINE 20MG TAB PO SCH (19:56)
[2023-01-03 20:55] LABS: MAGNESIUM 2.2 mg/dL (1.80-2.40); PHOSPHORUS 3.9 mg/dL (2.5-4.9); POTASSIUM 3.9 mmol/L (3.5-5.1)
[2023-01-03] MEDS ORDERED: SACUBITRIL/VALSARTAN 1 EACH TABLET PO SCH (21:00)
[2023-01-03] MEDS ORDERED: CALCIUM GLUC 1GM/10ML VIAL ONE (21:17)
[2023-01-03] MEDS: CALCIUM GLUC 1GM 1 GM in 0.9%NACL 50ML 50 ML IV PRN (21:19)
[2023-01-04] VITALS (17 sets, daily range): BP systolic 96–137; BP diastolic 38–69
[2023-01-04 03:59] LABS: BASOPHILS % (AUTO) 0.3 % (0.0-5.0); EOSINOPHILS % (AUTO) 1.9 % (0.0-8.0); HEMATOCRIT 23.7 % (42-54); LYMPHOCYTES % (AUTO) 13.7 % (21.0-51.0); MEAN CORPUSCULAR HEMOGLOBIN 27.9 pg (27.0-33.0); MEAN CORPUSCULAR HGB CONC 31.6 g/dL (32.0-36.0); MEAN CORPUSCULAR VOLUME 88.1 fL (79-99); MONOCYTES % (AUTO) 7.5 % (3.0-13.0); NEUTROPHILS % (AUTO) 75.5 % (40.0-77.0); PLATELET COUNT (AUTO) 96 K/uL (130-400); RED BLOOD CELL COUNT(AUTO) 2.69 MIL/uL (4.50-6.20); RED CELL DISTRIBUTION WIDTH 13.5 % (11.0-15.5)
[2023-01-04 04:21] LABS: ALBUMIN 1.9 g/dL (3.5-5.0); CREATININE 1.4 mg/dL (0.5-1.5); POTASSIUM 3.7 mmol/L (3.5-5.1); TOTAL PROTEIN, SERUM 5.3 g/dL (6.0-8.3)
[2023-01-04 04:52] LABS: INR 0.96 (0.85-1.15); PROTHROMBIN TIME 10.5 SEC (9.6-11.6)
[2023-01-04 04:54] LABS: PARTIAL THROMBOPLASTIN TIME 34.2 SEC (26.3-35.5)
[2023-01-04] MEDS: POTASSIUM CHLORIDE 20MEQ/100ML 100 ML IV PRN ×2 (05:01→08:36)
[2023-01-04] MEDS: INSULIN HUMULIN R 100 UNIT/ML 3ML SQ SCH ×4 (06:41→20:52)
[2023-01-04] MEDS: ACETYLCYSTEINE 10% 100MG/ML 4ML VIAL IH SCH ×2 (06:57→18:44)
[2023-01-04] MEDS: IPRATROPIUM 0.5 MG/2.5 ML INH IH SCH ×3 (06:57→18:44)
[2023-01-04] MEDS: ASPIRIN 81MG CHEW TAB PO SCH (08:23)
[2023-01-04] MEDS: ATORVASTATIN 40 MG TABLET PO SCH (08:25)
[2023-01-04] MEDS: FUROSEMIDE 20MG VIAL IV SCH ×2 (08:26→16:54)
[2023-01-04] MEDS: CARVEDILOL 6.25 MG TABLET PO SCH ×2 (08:27→20:51)
[2023-01-04] MEDS: ZOSYN 3.375GM +NS 50ML IVPB SCH ×2 (08:28→16:54)
[2023-01-04] MEDS: SACUBITRIL/VALSARTAN 1 EACH TABLET PO SCH ×2 (08:28→20:51)
[2023-01-04] MEDS: FAMOTIDINE 20MG TAB PO SCH ×2 (08:28→20:50)
[2023-01-04] MEDS: ONDANSETRON 4MG INJ IV PRN (08:29)
[2023-01-04] MEDS: MAGNESIUM 2GM PREMIX 50ML 50 ML IV PRN (13:47)
[2023-01-04 16:08] LABS: MAGNESIUM 2.2 mg/dL (1.80-2.40); POTASSIUM 3.7 mmol/L (3.5-5.1)
[2023-01-04] MEDS: KCL 20 MEQ ERTAB PO PRN ×2 (16:54→20:00)
[2023-01-04] MEDS: TRAMADOL HCL 50 MG TABLET PO PRN ×2 (17:59→20:00)
[2023-01-04] MEDS ORDERED: ALPRAZOLAM 0.25 MG TABLET PO PRN (23:30)
[2023-01-05] MEDS: IPRATROPIUM 0.5 MG/2.5 ML INH IH SCH ×5 (00:04→23:46)
[2023-01-05] MEDS: FUROSEMIDE 20MG VIAL IV SCH ×3 (00:12→15:41)
[2023-01-05] MEDS: ZOSYN 3.375GM +NS 50ML IVPB SCH ×4 (01:35→15:45)
[2023-01-05 04:03] VITALS: BP 106/63
[2023-01-05 04:29] LABS: HEMATOCRIT 24.6 % (42-54); MEAN CORPUSCULAR HEMOGLOBIN 27.3 pg (27.0-33.0); MEAN CORPUSCULAR HGB CONC 31.3 g/dL (32.0-36.0); MEAN CORPUSCULAR VOLUME 87.2 fL (79-99); NUCLEATED RED BLOOD CELLS 0.2 % (0.0-0.19); RED BLOOD CELL COUNT(AUTO) 2.82 MIL/uL (4.50-6.20); RED CELL DISTRIBUTION WIDTH 12.9 % (11.0-15.5); WHITE BLOOD COUNT (AUTO) 12.8 K/uL (4.8-10.8)
[2023-01-05 04:37] LABS: CREATININE 1.4 mg/dL (0.5-1.5); POTASSIUM 3.8 mmol/L (3.5-5.1)
[2023-01-05] MEDS: ACETYLCYSTEINE 10% 100MG/ML 4ML VIAL IH SCH ×2 (06:45→18:32)
[2023-01-05] MEDS: INSULIN HUMULIN R 100 UNIT/ML 3ML SQ SCH ×4 (07:03→21:00)
[2023-01-05 08:30] VITALS: BP 106/64
[2023-01-05] MEDS: SACUBITRIL/VALSARTAN 1 EACH TABLET PO SCH ×3 (08:45→21:09)
[2023-01-05] MEDS: ASPIRIN 81MG CHEW TAB PO SCH ×2 (08:45→09:00)
[2023-01-05] MEDS: ATORVASTATIN 40 MG TABLET PO SCH ×2 (08:45→09:00)
[2023-01-05] MEDS: CARVEDILOL 6.25 MG TABLET PO SCH ×3 (08:46→21:09)
[2023-01-05] MEDS: FAMOTIDINE 20MG TAB PO SCH ×4 (08:46→21:09)
[2023-01-05] MEDS: TRAMADOL HCL 50 MG TABLET PO PRN (08:51)
[2023-01-05] MEDS: DOCUSATE SODIUM 100 MG CAP PO SCH (10:00)
[2023-01-05] MEDS: LACTULOSE 20 GM/30 ML UDCUP PO SCH ×3 (10:00→21:09)
[2023-01-05] MEDS: INSULIN GLARGINE 100 UNITS/ML 10 ML VIAL SQ SCH (10:00)
[2023-01-05 16:17] VITALS: BP 154/65
[2023-01-05 19:30] VITALS: BP 135/63
[2023-01-05] MEDS ORDERED: MELATONIN 5 MG TABLET PO PRN (21:00)
[2023-01-05] MEDS: ACETAMINOPHEN 325 MG TAB PO PRN (21:12)
[2023-01-06] VITALS: BP 108/56
[2023-01-06] MEDS: ZOSYN 3.375GM +NS 50ML IVPB SCH ×3 (01:02→17:47)
[2023-01-06] MEDS: FUROSEMIDE 20MG VIAL IV SCH ×3 (01:03→16:01)
[2023-01-06 04:15] VITALS: BP 147/98
[2023-01-06] MEDS: ACETYLCYSTEINE 10% 100MG/ML 4ML VIAL IH SCH ×2 (06:00→23:16)
[2023-01-06] MEDS: IPRATROPIUM 0.5 MG/2.5 ML INH IH SCH ×3 (06:00→23:17)
[2023-01-06] MEDS: INSULIN HUMULIN R 100 UNIT/ML 3ML SQ SCH ×4 (06:49→22:44)
[2023-01-06 08:30] VITALS: BP 115/55
[2023-01-06] MEDS: DOCUSATE SODIUM 100 MG CAP PO SCH (10:00)
[2023-01-06] MEDS: SACUBITRIL/VALSARTAN 1 EACH TABLET PO SCH ×2 (10:29→22:24)
[2023-01-06] MEDS: POLYETHYLENE GLYCOL 3350 17 GM POWD.PACK PO SCH (10:29)
[2023-01-06] MEDS: LACTULOSE 20 GM/30 ML UDCUP PO SCH ×2 (10:29→21:00)
[2023-01-06] MEDS: ATORVASTATIN 40 MG TABLET PO SCH (10:29)
[2023-01-06] MEDS: KCL 20 MEQ ERTAB PO PRN ×2 (10:30→13:35)
[2023-01-06] MEDS: CARVEDILOL 6.25 MG TABLET PO SCH ×2 (10:30→22:25)
[2023-01-06] MEDS: ASPIRIN 81MG CHEW TAB PO SCH (10:31)
[2023-01-06] MEDS: INSULIN GLARGINE 100 UNITS/ML 10 ML VIAL SQ SCH (10:33)
[2023-01-06] MEDS: FAMOTIDINE 20MG TAB PO SCH ×2 (10:33→22:25)
[2023-01-06 13:23] VITALS: BP 142/50
[2023-01-06 16:30] VITALS: BP 110/60
[2023-01-06 20:00] VITALS: BP 112/53
[2023-01-07] VITALS: BP 109/54
[2023-01-07] MEDS: FUROSEMIDE 20MG VIAL IV SCH ×4 (00:26→23:11)
[2023-01-07] MEDS: ZOSYN 3.375GM +NS 50ML IVPB SCH ×2 (01:33→09:36)
[2023-01-07] MEDS: ACETAMINOPHEN 325 MG TAB PO PRN ×3 (03:33→15:17)
[2023-01-07 04:00] VITALS: BP 129/58
[2023-01-07] MEDS: ACETYLCYSTEINE 10% 100MG/ML 4ML VIAL IH SCH ×2 (06:00→18:00)
[2023-01-07] MEDS: INSULIN HUMULIN R 100 UNIT/ML 3ML SQ SCH ×4 (06:33→22:29)
[2023-01-07] MEDS: IPRATROPIUM 0.5 MG/2.5 ML INH IH SCH ×3 (06:41→22:35)
[2023-01-07 08:39] VITALS: BP 116/67
[2023-01-07] MEDS: INSULIN GLARGINE 100 UNITS/ML 10 ML VIAL SQ SCH (09:24)
[2023-01-07] MEDS: SACUBITRIL/VALSARTAN 1 EACH TABLET PO SCH ×2 (09:24→09:25)
[2023-01-07] MEDS: LACTULOSE 20 GM/30 ML UDCUP PO SCH ×2 (09:25→22:18)
[2023-01-07] MEDS: CARVEDILOL 6.25 MG TABLET PO SCH ×2 (09:25→22:19)
[2023-01-07] MEDS: POLYETHYLENE GLYCOL 3350 17 GM POWD.PACK PO SCH ×2 (09:25→09:26)
[2023-01-07] MEDS: ATORVASTATIN 40 MG TABLET PO SCH (09:25)
[2023-01-07] MEDS: ASPIRIN 81MG CHEW TAB PO SCH ×2 (09:28→09:36)
[2023-01-07] MEDS: FAMOTIDINE 20MG TAB PO SCH ×2 (09:29→22:19)
[2023-01-07] MEDS: DOCUSATE SODIUM 100 MG CAP PO SCH (09:39)
[2023-01-07] MEDS ORDERED: DIPHENHYDRAMINE HCL 25 MG CAPSULE PO PRN (10:30)
[2023-01-07 12:00] VITALS: BP 111/65
[2023-01-07] MEDS ORDERED: ATOR40TA69 PO (15:24)
[2023-01-07] MEDS ORDERED: FAMO20TA8 PO (15:24)
[2023-01-07] MEDS ORDERED: CARV6.2579 PO (15:24)
[2023-01-07] MEDS ORDERED: METF-444 PO (15:24)
[2023-01-07] MEDS ORDERED: FURO40TA7 PO (15:24)
[2023-01-07] MEDS ORDERED: ASPI-1005 PO (15:24)
[2023-01-07] MEDS ORDERED: SACU1TAB PO (15:24)
[2023-01-07 20:28] VITALS: BP 123/61
[2023-01-07 23:38] VITALS: BP 140/67
[2023-01-08 03:58] VITALS: BP 127/63
[2023-01-08] MEDS: IPRATROPIUM 0.5 MG/2.5 ML INH IH SCH ×2 (06:00→14:00)
[2023-01-08] MEDS: ACETYLCYSTEINE 10% 100MG/ML 4ML VIAL IH SCH (06:00)
[2023-01-08] MEDS: INSULIN HUMULIN R 100 UNIT/ML 3ML SQ SCH ×2 (06:19→12:03)
[2023-01-08] MEDS: FUROSEMIDE 20MG VIAL IV SCH (06:30)
[2023-01-08 07:00] VITALS: BP 114/49
[2023-01-08] MEDS: INSULIN GLARGINE 100 UNITS/ML 10 ML VIAL SQ SCH (09:29)
[2023-01-08] MEDS: POLYETHYLENE GLYCOL 3350 17 GM POWD.PACK PO SCH (09:30)
[2023-01-08] MEDS: LACTULOSE 20 GM/30 ML UDCUP PO SCH (09:30)
[2023-01-08] MEDS: FAMOTIDINE 20MG TAB PO SCH ×2 (09:31→09:33)
[2023-01-08] MEDS: DOCUSATE SODIUM 100 MG CAP PO SCH (09:31)
[2023-01-08] MEDS: ATORVASTATIN 40 MG TABLET PO SCH (09:31)
[2023-01-08] MEDS: CARVEDILOL 6.25 MG TABLET PO SCH ×2 (09:31→09:33)
[2023-01-08] MEDS: ASPIRIN 81MG CHEW TAB PO SCH (09:32)
[2023-01-08] MEDS: SACUBITRIL/VALSARTAN 1 EACH TABLET PO SCH (09:36)
[2023-01-08 11:00] VITALS: BP 141/68
== END 2023-01-08 14:30 | disposition home or self-care (01) | DRG 853 ==
LOC: EDH 13:39 → EDHIP 14:20 → 2CV 16:50 → 2AH 01-04 16:18
PROVIDERS: ADMIT Internal Medicine Critical Care Medicine; ATTEND Internal Medicine Critical Care Medicine
PROC: 5A02210 Assistance with Cardiac Output using Balloon Pump, Continuous (ICD-10-PCS; 2022-12-29)
PROC: 4A023N7 Measurement of Cardiac Sampling and Pressure, Left Heart, Percutaneous Approach (ICD-10-PCS; 2022-12-29)
PROC: B2111ZZ Fluoroscopy of Multiple Coronary Arteries using Low Osmolar Contrast (ICD-10-PCS; 2022-12-29)
PROC: B41F1ZZ Fluoroscopy of Right Lower Extremity Arteries using Low Osmolar Contrast (ICD-10-PCS; 2022-12-29)
PROC: 5A1945Z Respiratory Ventilation, 24-96 Consecutive Hours (ICD-10-PCS; 2022-12-29)
PROC: 0BH17EZ Insertion of Endotracheal Airway into Trachea, Via Natural or Artificial Opening (ICD-10-PCS; 2022-12-29)
PROC: 0PH000Z Insertion of Rigid Plate Internal Fixation Device into Sternum, Open Approach (ICD-10-PCS; 2023-01-01)
PROC: 02100Z9 Bypass Coronary Artery, One Artery from Left Internal Mammary, Open Approach (ICD-10-PCS; principal; 2023-01-01 17:46)
PROC: 021109W Bypass Coronary Artery, Two Arteries from Aorta with Autologous Venous Tissue, Open Approach (ICD-10-PCS; 2023-01-01 17:46)
PROC: 06BQ4ZZ Excision of Left Saphenous Vein, Percutaneous Endoscopic Approach (ICD-10-PCS; 2023-01-01 17:46)
PROC: 30233N1 Transfusion of Nonautologous Red Blood Cells into Peripheral Vein, Percutaneous Approach (ICD-10-PCS; 2023-01-02)
DX: A41.9 Sepsis, unspecified organism (principal); I21.09 ST elevation (STEMI) myocardial infarction involving other coronary artery of anterior wall; J96.01 Acute respiratory failure with hypoxia; R57.0 Cardiogenic shock; Z20.822 Contact with and (suspected) exposure to COVID-19; R65.21 Severe sepsis with septic shock; I50.21 Acute systolic (congestive) heart failure; I21.A1 Myocardial infarction type 2; J69.0 Pneumonitis due to inhalation of food and vomit; J95.2 Acute pulmonary insufficiency following nonthoracic surgery; I13.0 Hypertensive heart and chronic kidney disease with heart failure and stage 1 through stage 4 chronic kidney disease, or unspecified chronic kidney disease; D62 Acute posthemorrhagic anemia; N17.9 Acute kidney failure, unspecified; I25.10 Atherosclerotic heart disease of native coronary artery without angina pectoris; D69.59 Other secondary thrombocytopenia; E11.22 Type 2 diabetes mellitus with diabetic chronic kidney disease; E11.65 Type 2 diabetes mellitus with hyperglycemia; E78.00 Pure hypercholesterolemia, unspecified; I25.5 Ischemic cardiomyopathy; N18.9 Chronic kidney disease, unspecified; Z79.899 Other long term (current) drug therapy; I25.2 Old myocardial infarction; Z91.199 Patient's noncompliance with other medical treatment and regimen due to unspecified reason
CPT/HCPCS: 31500; 33967; 36415; 36430; 36600; 71045; 80048; 80053; 80061; 82330; 82435; 82550; 82803; 82947; 82948; 83036; 83605; 83735; 83880; 84100; 84132; 84295; 84443; 84484; 85014; 85018; 85025; 85027; 85347; 85384; 85610; 85730; 85732; 86850; 86900; 86901; 86923; 87071; 87205; 87426; 87641; 87804; 92610; 93005; 93306; 93308; 93454; 94002; 94003; 94150; 94640; 94664; 97039; 99156; 99157; A4357; A7048; C1751; C1769; C1887; C1894; G0378; J0171; J0330; J0610; J0690; J1160; J1170; J1200; J1250; J1265; J1644; J1815; J1940; J2001; J2250; J2270; J2405; J2440; J2543; J2704; J2720; J3010; J3475; J3480; J3490; J7030; J7040; J7050; J7120; J7608; P9016; P9045; Q9967